=== PATIENT | female | born 1990 | race Caucasian/White ===

== ENCOUNTER 2023-05-22 08:25 | Day surgery (SDC) | payer OTHER ==
[~2023-05-22] VITALS: Ht 162.6 cm; Wt 78.0 kg
[2023-05-22] MEDS ORDERED: MIDAZOLAM HCL 5 MG/5 ML VIAL ONE ×2 (09:57→11:46)
[2023-05-22] MEDS ORDERED: MEPERIDINE 100 MG INJ. 100 MG/ML VIAL ONE (09:57)
[2023-05-22 10:11] LABS: SERUM HCG (QUALITATIVE) NEGATIVE (NEGATIVE)
[2023-05-22 12:21] VITALS: O2SAT 97
[2023-05-22 15:10] VITALS: BP_SYST 97; PULSE 71; RESP 11
== END 2023-05-22 13:27 | disposition home or self-care (01) ==
LOC: SDS 08:25
PROVIDERS: ATTEND Internal Medicine Gastroenterology
DX: K62.5 Hemorrhage of anus and rectum (principal); R19.4 Change in bowel habit; Z80.0 Family history of malignant neoplasm of digestive organs; F32.A Depression, unspecified
CPT/HCPCS: 45378; 99152; 84703; 36415; 99153; G0378; J2250; J2175